=== PATIENT | female | born 1935 | race Caucasian/White ===

== ENCOUNTER 2020-01-11 19:48 | Emergency (ER) | payer MEDICARE, OTHER ==
[~2020-01-11] VITALS: Ht 165.1 cm; Wt 68.4 kg
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
--- NOTE | 2020-01-11 20:50 | NUR ---
have attempted to contact pt son x2 with number provided, but there is no answer and no voicemail set up
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
--- NOTE | 2020-01-12 00:18 | NUR ---
pt has been assisted to the BR again. well tolerated
--- NOTE | 2020-01-12 00:50 | NUR ---
pt O2 company is here for delivery. walker at bedside. O2 delivery en route. pt to be given taxi voucher to [facility] where [employer] sales representative is waiting to get them checked into their room
--- NOTE | 2020-01-12 01:16 | NUR ---
pt has been taking PO fluids, declines PO snacks
[2020-01-12 02:18] VITALS: BP 140/68
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
== END 2020-01-12 02:23 | disposition home or self-care (01) ==
LOC: ED 20:18
DX: R06.00 Dyspnea, unspecified (principal); Z87.891 Personal history of nicotine dependence
CPT/HCPCS: 99285